=== PATIENT | female | born 1975 | race African-American/Black ===

== ENCOUNTER 2024-03-17 19:52 | Inpatient (IN) ==
[~2024-03-17 19:52] MED LIST: LORazepam 2 mg VIAL 1 ml IV PUSH ONE
[2024-03-17] MEDS ORDERED: Lorazepam PYXIS KEY PRN (20:22)
[2024-03-17] MEDS: LORazepam 2 mg VIAL 1 ml IV PUSH ONE (20:53)
[2024-03-17 21:26] LABS: Hematocrit 24.1 % (35-45); Mean Corpuscular Hgb Conc 23.6 g/dL (31-36); Mean Corpuscular Volume 63.8 fL (80-97); Mean Platelet Volume 7.3 fL (7.5-11.2); Platelet Count 689 10^3/uL (150-450); Red Blood Count 3.78 10^6/uL (3.63-4.92); Red Cell Distribution Width 26.8 % (12-17)
[2024-03-17 21:42] LABS: Albumin 2.5 g/dL (3.2-5.2); Albumin/Globulin Ratio 0.5 (1-3); Calcium 9.7 mg/dL (8.6-10.3); Creatinine, Serum 1.49 mg/dL (0.51-0.95); Globulin 4.9 g/dL (2-4); Magnesium 2.3 mg/dL (1.9-2.7); Potassium 4.8 mmol/L (3.5-5.0); Total Bilirubin 1.7 mg/dL (0.2-1.0); Total Protein 7.4 g/dL (6.4-8.9); eGFR CKD-EPI 43.3 (>60)
[2024-03-17 21:49] LABS: ABS Basophils 0.1 10^3/uL (0.0-0.1); ABS Lymphocytes 0.6 10^3/uL (1.0-4.8); ABS Monocytes 1.1 10^3/uL (0.0-0.9); ABS Neutrophils 18.2 10^3/uL (1.5-7.6); ABS Nucleated RBC 0.19 10^3/ul; Anisocytosis 2+; Eosinophil % 0.1 %; Hypochromasia 1+; Large Platelets Present; Lymphocyte % 2.9 %; Microcytosis 3+
[2024-03-17] MEDS ORDERED: Pantoprazole 80 mg in NS BAG 80 MG/250 ML BAG IV ONE (21:56)
[2024-03-17 21:57] LABS: Hematocrit 23.1 % (35-45); Hemoglobin 5.7 g/dL (11.5-14.3)
[2024-03-17] MEDS: Piperacillin/Tazobac 3.375 BAG 3.375 GM/100 ML BAG IV ONE (21:58)
[2024-03-17 22:04] LABS: Activated Partial Thrombo Time 24.7 seconds (26.0-38.0); INR 1.96 (0.83-1.13)
[2024-03-17] MEDS: Lactated Ringers SEPSIS* BAG 1,780 ML IV ONE (22:08)
[2024-03-17] MEDS: NORMOSOL R PH IV ONE (22:09)
[2024-03-17 22:17] LABS: High Sensitivity Troponin 1 Hr 18 pg/mL (<15)
[2024-03-17] MEDS: Pantoprazole VIAL 40 MG VIAL IV ONE (22:17)
[2024-03-17 22:27] LABS: PO2 Arterial 147 mmHg (80-100)
[2024-03-17 22:29] LABS: PCO2 Arterial <20 mmHg (35-45)
[2024-03-17 22:31] LABS: C Reactive Protein 140.08 mg/L (<8.01)
[2024-03-17] MEDS: Iodixanol (CONTRAST) 320 MG/ML 100 ML SDV IV ONE (23:10)
[2024-03-17 23:40] LABS: Immature Retic Fraction 0.52
[2024-03-18] MEDS: Pantoprazole 80 mg in NS BAG 80 MG/250 ML BAG IV SCH (00:35)
[2024-03-18] MEDS ORDERED: Lidocaine 1% MPF 5 ML VIAL INJ ONE (00:38)
[2024-03-18] MEDS ORDERED: Lidocaine 1% MPF 5 ML VIAL ONE (00:38)
[2024-03-18 00:47] LABS: Phosphorus 7.1 mg/dL (2.5-5.0)
[2024-03-18 00:49] LABS: RBC Retic Count 3.72 10^6/ul (3.63-4.92)
[2024-03-18 00:50] LABS: Corrected Retic Count 1.2 % (0.5-2.2); Hematocrit for Retic CNT 24.1 % (35-45)
[2024-03-18] MEDS: Vancomycin 1,500 MG in NS 0.9% 250 ml 250 ML IVPB ONE (01:38)
[2024-03-18] MEDS: Lactated Ringers 1000 ml BAG 1,000 ML IV ONE (02:25)
[2024-03-18 02:28] LABS: Hemoglobin 5.7 g/dL (11.5-14.3)
[2024-03-18 03:19] LABS: Urine Appearance Turbid; Urine Bilirubin Negative (Negative); Urine Blood Negative (Negative); Urine Color Yellow; Urine Glucose Negative (Negative); Urine Ketones Negative (Negative); Urine Nitrite Negative (Negative); Urine Protein 2+ (>=100 mg/dL) (Negative); Urine Specific Gravity 1.019 (1.002-1.030); Urine Urobilinogen 1+ (Negative); Urine pH 5.5 (5.0-8.0)
[2024-03-18 03:35] LABS: Iron < 20 ug/dL (50-212)
[2024-03-18 03:54] LABS: Ferritin 73.8 ng/mL (11-307)
[2024-03-18] MEDS: Morphine 2 MG/ML SYRINGE IV PRN ×2 (04:54→08:30)
[2024-03-18 05:01] LABS: Urine Amorphous Crystals Present /HPF (Absent); Urine Bacteria Absent /HPF (Absent); Urine Red Blood Cell Trace(0-2/hpf) /HPF (0-Trace); Urine Squamous Epithelial Cell Present /HPF (Absent); Urine White Blood Cell Trace(0-5/hpf) /HPF (0-Trace)
[2024-03-18 08:38] LABS: Hematocrit 22.3 % (35-45); Hemoglobin 6.6 g/dL (11.5-14.3)
[2024-03-18 08:40] LABS: INR 1.84 (0.83-1.13)
[2024-03-18 09:04] LABS: Hemoglobin 6.6 g/dL (11.5-14.3); Mean Corpuscular Hemoglobin 18.8 pg (27-33); Mean Corpuscular Hgb Conc 28.8 g/dL (31-36); Mean Corpuscular Volume 65.3 fL (80-97); Mean Platelet Volume 8.3 fL (7.5-11.2); Platelet Count 357 10^3/uL (150-450); Red Blood Count 3.53 10^6/uL (3.63-4.92)
[2024-03-18] MEDS: Pantoprazole VIAL 40 MG VIAL IV SCH (09:37)
[2024-03-18 09:39] LABS: ABS Lymphocytes 1.7 10^3/uL (1.0-4.8); ABS Monocytes 0.7 10^3/uL (0.0-0.9); ABS Neutrophils 9.5 10^3/uL (1.5-7.6); ABS Nucleated RBC 0.08 10^3/ul; Lymphocyte % 14.5 %; Nucleated Red Blood Cells % 0.7 %/100WBC (0.0-0.8)
[2024-03-18] MEDS: Piperacillin/Tazobac 3.375 BAG 3.375 GM/100 ML BAG IV ONE (09:59)
[2024-03-18] MEDS ORDERED: Zosyn per Pharmacy NOTE FOLLOW UP SCH (10:00)
[2024-03-18 10:01] LABS: Carcinoembryonic Antigen > 1000.0 ng/mL (0.1-5.0)
[2024-03-18 11:05] LABS: ALT 319 U/L (7-52); Albumin 2.2 g/dL (3.2-5.2); Albumin/Globulin Ratio 0.6 (1-3); Alkaline Phosphatase 351 U/L (35-149); Anion Gap 10 mmol/L (2-16); Blood Urea Nitrogen 21 mg/dL (6-24); CO2 Carbon Dioxide 22 mmol/L (22-32); Calcium 8.6 mg/dL (8.6-10.3); Chloride 101 mmol/L (101-111); Creatinine, Serum 1.21 mg/dL (0.51-0.95); Globulin 3.8 g/dL (2-4); Glucose 86 mg/dL (70-100); Phosphorus 5.3 mg/dL (2.5-5.0); Potassium 4.7 mmol/L (3.5-5.0); Sodium 133 mmol/L (135-145); Total Bilirubin 2.6 mg/dL (0.2-1.0); eGFR CKD-EPI 55.6 (>60)
[2024-03-18 11:34] LABS: AST 2481 U/L (13-39)
[2024-03-18] MEDS: ZOSYN 3.375 GM Q8H per EXTENDED INFUSION IV SCH (14:06)
[2024-03-18 15:11] LABS: Hematocrit 27.1 % (35-45); Hemoglobin 8.5 g/dL (11.5-14.3)
[2024-03-18] MEDS: Heparin DRIP 25,000 UNITS BAG 25,000 UNITS/250 ML BAG IV SCH (15:55)
[2024-03-18] MEDS: Heparin 5000 UNITS/ML 1 mL VIAL IV SCH (15:59)
[2024-03-18 22:52] LABS: Hematocrit 27.7 % (35-45); Hemoglobin 8.6 g/dL (11.5-14.3)
[2024-03-19] MEDS: NS 0.9% 1000 ml BAG 1,000 ML IV SCH (00:21)
[2024-03-19] MEDS: NS 0.9% 1000 ml BAG 1,000 ML IV ONE (06:01)
[2024-03-19 07:02] LABS: Calcium 7.8 mg/dL (8.6-10.3); Creatinine, Serum 1.17 mg/dL (0.51-0.95); eGFR CKD-EPI 57.9 (>60)
[2024-03-19 07:26] LABS: Albumin 2.2 g/dL (3.2-5.2); Albumin/Globulin Ratio 0.6 (1-3); Globulin 3.7 g/dL (2-4); Phosphorus 4.6 mg/dL (2.5-5.0); Total Bilirubin 3.5 mg/dL (0.2-1.0); Total Protein 5.9 g/dL (6.4-8.9)
[2024-03-19 08:03] LABS: Hematocrit 27.1 % (35-45); Hemoglobin 8.4 g/dL (11.5-14.3); Mean Corpuscular Hemoglobin 21.1 pg (27-33); Mean Corpuscular Volume 68.2 fL (80-97); Mean Platelet Volume 8.5 fL (7.5-11.2); Platelet Count 325 10^3/uL (150-450); Red Blood Count 3.98 10^6/uL (3.63-4.92); Red Cell Distribution Width 32.7 % (12-17); White Blood Count 12.7 10^3/uL (3.8-11.8)
[2024-03-19 08:05] LABS: ABS Lymphocytes 1.1 10^3/ul (1.0-4.8); ABS Monocytes 0.8 10^3/ul (0.0-0.9); ABS Neutrophils 10.8 10^3/ul (1.5-7.6); Anisocytosis 2+; Hypochromasia 2+; Microcytosis 2+
[2024-03-19] MEDS: Lactated Ringers 1000 ml BAG 1,000 ML IV ONE ×2 (08:24→11:00)
[2024-03-19 12:02] LABS: INR 1.59 (0.83-1.13)
[2024-03-19 14:20] LABS: Hepatitis B Surface Antigen Nonreactive (Nonreactive)
[2024-03-19 14:26] LABS: Hepatitis A Ab IgM Negative (Negative)
[2024-03-19 14:36] LABS: Hepatitis C Antibody Negative (Negative)
[2024-03-19 17:50] LABS: Hepatitis B Core IgM Nonreactive (Nonreactive)
[2024-03-20 07:02] LABS: ALT 185 U/L (7-52); AST 304 U/L (13-39); Albumin/Globulin Ratio 0.5 (1-3); Alkaline Phosphatase 371 U/L (35-149); Anion Gap 8 mmol/L (2-16); Blood Urea Nitrogen 27 mg/dL (6-24); CO2 Carbon Dioxide 22 mmol/L (22-32); Calcium 7.9 mg/dL (8.6-10.3); Chloride 103 mmol/L (101-111); Creatinine, Serum 1.16 mg/dL (0.51-0.95); Globulin 3.8 g/dL (2-4); Glucose 66 mg/dL (70-100); Magnesium 1.9 mg/dL (1.9-2.7); Phosphorus 4.1 mg/dL (2.5-5.0); Potassium 3.7 mmol/L (3.5-5.0); Sodium 133 mmol/L (135-145); Total Protein 5.8 g/dL (6.4-8.9); eGFR CKD-EPI 58.5 (>60)
[2024-03-20 07:50] LABS: Hematocrit 27.1 % (35-45); Hemoglobin 8.3 g/dL (11.5-14.3); Mean Corpuscular Hemoglobin 20.9 pg (27-33); Mean Corpuscular Hgb Conc 30.5 g/dL (31-36); Mean Corpuscular Volume 68.4 fL (80-97); Mean Platelet Volume 8.5 fL (7.5-11.2); Platelet Count 281 10^3/uL (150-450); Red Blood Count 3.96 10^6/uL (3.63-4.92); Red Cell Distribution Width 33.8 % (12-17); White Blood Count 12.8 10^3/uL (3.8-11.8)
[2024-03-20 07:57] LABS: Anisocytosis 2+; Hypochromasia 2+; Microcytosis 1+; Target Cells 1+; Tear Drop Cells 1+
[2024-03-20 08:53] LABS: ABS Lymphocytes 0.5 10^3/ul (1.0-4.8); ABS Monocytes 1.2 10^3/ul (0.0-0.9); ABS Neutrophils 11.1 10^3/ul (1.5-7.6)
[2024-03-20] MEDS: fentaNYL 100 mcg/2 ml 50 MCG/ML VIAL ONE (08:56)
[2024-03-20] MEDS ORDERED: Heparin 5000 UNITS/ML 1 mL VIAL IV SCH (09:00)
[2024-03-20] MEDS: NS 0.9% 1000 ml BAG 1,000 ML IV SCH (09:30)
[2024-03-20] MEDS: Heparin DRIP 25,000 UNITS BAG 25,000 UNITS/250 ML BAG IV SCH (09:47)
[2024-03-20 10:39] LABS: Creatine Kinase 1713 U/L (10-223)
[2024-03-20 12:29] LABS: % Iron Saturation 10 % (15-55); .Transferrin 146 mg/dL (203-362); Iron < 20 ug/dL (50-212); Total Iron Binding Capacity 204 mcg/dL (250-450); Unsaturated Iron Binding 184 ug/dL
[2024-03-20 14:30] LABS: Herpes Simplex Virus I IgG AB Positive (Negative); Herpes Simplex Virus II IgG AB Positive (Negative)
[2024-03-20 15:40] LABS: Immunoglobulin G 2100 mg/dL (767 - 1590)
[2024-03-20 17:38] LABS: Haptoglobin <14 mg/dL (30 - 200)
[2024-03-20] MEDS ORDERED: Albumin Human 5% 25 GM/500 ML BTL IV ONE (23:12)
[2024-03-21] MEDS ORDERED: Albumin Human 5% 25 GM/500 ML BTL IV ONE (01:00)
[2024-03-21] MEDS: Albumin Human 5% 12.5 GM/250 ML BTL IV SCH (01:36)
[2024-03-21 06:37] LABS: Hematocrit 27.3 % (35-45); Hemoglobin 8.1 g/dL (11.5-14.3); Mean Corpuscular Hemoglobin 20.9 pg (27-33); Mean Corpuscular Hgb Conc 29.8 g/dL (31-36); Mean Corpuscular Volume 70.2 fL (80-97); Mean Platelet Volume 8.4 fL (7.5-11.2); Platelet Count 246 10^3/uL (150-450); Red Blood Count 3.89 10^6/uL (3.63-4.92); Red Cell Distribution Width 34.4 % (12-17); White Blood Count 16.7 10^3/uL (3.8-11.8)
[2024-03-21 07:11] LABS: Albumin 2.4 g/dL (3.2-5.2); Albumin/Globulin Ratio 0.6 (1-3); Calcium 8.6 mg/dL (8.6-10.3); Creatinine, Serum 1.94 mg/dL (0.51-0.95); Globulin 3.9 g/dL (2-4); Magnesium 1.9 mg/dL (1.9-2.7); Phosphorus 5.5 mg/dL (2.5-5.0); Potassium 4.1 mmol/L (3.5-5.0); Total Bilirubin 3.3 mg/dL (0.2-1.0); Total Protein 6.3 g/dL (6.4-8.9); eGFR CKD-EPI 31.6 (>60)
[2024-03-21 07:47] LABS: ABS Lymphocytes 1.3 10^3/ul (1.0-4.8); ABS Monocytes 0.7 10^3/ul (0.0-0.9); ABS Neutrophils 14.7 10^3/ul (1.5-7.6)
[2024-03-21 07:49] LABS: Anisocytosis 2+; Hypochromasia 2+; Macrocytosis 1+; Microcytosis 1+; Target Cells 1+
[2024-03-21] MEDS: NS 0.9% 1000 ml BAG 1,000 ML IV SCH (08:48)
[2024-03-21 11:05] LABS: Cytomegalovirus IgG Antibody Positive (Negative); EBV, IgG Ab to Early Antigen Negative (Negative)
[2024-03-22 06:39] LABS: Hematocrit 28.6 % (35-45); Hemoglobin 8.3 g/dL (11.5-14.3); Mean Corpuscular Hemoglobin 20.8 pg (27-33); Mean Corpuscular Hgb Conc 29.1 g/dL (31-36); Mean Corpuscular Volume 71.3 fL (80-97); Mean Platelet Volume 8.6 fL (7.5-11.2); Platelet Count 239 10^3/uL (150-450); Red Cell Distribution Width 35.2 % (12-17)
[2024-03-22 06:41] LABS: Albumin 2.2 g/dL (3.2-5.2); Albumin/Globulin Ratio 0.6 (1-3); Calcium 8.6 mg/dL (8.6-10.3); Creatinine, Serum 2.55 mg/dL (0.51-0.95); Indirect Bilirubin 1.4 mg/dL (0.3-1.0); Magnesium 1.9 mg/dL (1.9-2.7); Potassium 4.2 mmol/L (3.5-5.0); Total Bilirubin 3.4 mg/dL (0.2-1.0); Total Protein 6.2 g/dL (6.4-8.9); eGFR CKD-EPI 22.7 (>60)
[2024-03-22 07:10] LABS: HIV 4th Generation Nonreactive (Nonreactive)
[2024-03-22 08:26] LABS: ABS Lymphocytes 2.5 10^3/ul (1.0-4.8); ABS Monocytes 1.6 10^3/ul (0.0-0.9); ABS Neutrophils 13.9 10^3/ul (1.5-7.6)
[2024-03-22 08:27] LABS: Anisocytosis 3+; Hypochromasia 1+; Macrocytosis 1+; Microcytosis 1+; Target Cells 1+
[2024-03-22] MEDS: Ferric Gluconate IV 250 MG in NS 0.9% 250 ml 200 ML IVPB SCH (10:18)
[2024-03-22 15:50] LABS: Urine Appearance Extra Turbid; Urine Bilirubin 1+ (Negative); Urine Blood Trace (Negative); Urine Color Dark-Yellow; Urine Glucose Trace (Negative); Urine Ketones Negative (Negative); Urine Nitrite Negative (Negative); Urine Protein 1+ (>=30 mg/dL) (Negative); Urine Specific Gravity 1.041 (1.002-1.030); Urine Urobilinogen Negative (Negative)
[2024-03-22 16:15] LABS: Budding Yeast Present /HPF (Absent); Urine Bacteria Absent /HPF (Absent); Urine Red Blood Cell Trace(0-2/hpf) /HPF (0-Trace); Urine Squamous Epithelial Cell Present /HPF (Absent); Urine White Blood Cell Trace(0-5/hpf) /HPF (0-Trace)
[2024-03-22] MEDS: NS 0.9% 1000 ml BAG 1,000 ML IV SCH (16:48)
[2024-03-22] MEDS: Petroleum Jelly 1.75 Oz (small jar) TOPICAL PRN (16:49)
[2024-03-23 06:56] LABS: Hematocrit 27.7 % (35-45); Hemoglobin 8.1 g/dL (11.5-14.3); Mean Corpuscular Hemoglobin 21.4 pg (27-33); Mean Corpuscular Hgb Conc 29.4 g/dL (31-36); Mean Corpuscular Volume 72.8 fL (80-97); Mean Platelet Volume 8.5 fL (7.5-11.2); Platelet Count 224 10^3/uL (150-450); Red Cell Distribution Width 36.4 % (12-17)
[2024-03-23 07:32] LABS: ABS Lymphocytes 1.7 10^3/ul (1.0-4.8); ABS Monocytes 1.9 10^3/ul (0.0-0.9); ABS Neutrophils 13.4 10^3/ul (1.5-7.6); Anisocytosis 2+; Hypochromasia 1+; Microcytosis 1+
[2024-03-23 08:03] LABS: Albumin 2.1 g/dL (3.2-5.2); Albumin/Globulin Ratio 0.5 (1-3); Calcium 8.4 mg/dL (8.6-10.3); Creatinine, Serum 2.57 mg/dL (0.51-0.95); Globulin 3.9 g/dL (2-4); Potassium 4.1 mmol/L (3.5-5.0); Total Bilirubin 4.1 mg/dL (0.2-1.0); eGFR CKD-EPI 22.5 (>60)
[2024-03-23] MEDS: D5LR 1000 ml BAG 1,000 ML IV SCH (12:04)
[2024-03-24 07:29] LABS: CKMB ng/mL 0.5 ng/mL (0.6-6.3)
[2024-03-24 08:21] LABS: Hematocrit 28.1 % (35-45); Hemoglobin 8.4 g/dL (11.5-14.3); Mean Corpuscular Hemoglobin 21.7 pg (27-33); Mean Corpuscular Hgb Conc 29.8 g/dL (31-36); Mean Corpuscular Volume 72.7 fL (80-97); Mean Platelet Volume 8.7 fL (7.5-11.2); Platelet Count 198 10^3/uL (150-450); Red Blood Count 3.86 10^6/uL (3.63-4.92); Red Cell Distribution Width 36.5 % (12-17); White Blood Count 13.2 10^3/uL (3.8-11.8)
[2024-03-24 08:42] LABS: Anisocytosis 3+; Hypochromasia 1+; Microcytosis 2+
[2024-03-24 08:43] LABS: ABS Lymphocytes 1.5 10^3/ul (1.0-4.8); ABS Monocytes 0.5 10^3/ul (0.0-0.9); ABS Neutrophils 11.2 10^3/ul (1.5-7.6)
[2024-03-24 10:23] LABS: Albumin 1.9 g/dL (3.2-5.2); Albumin/Globulin Ratio 0.5 (1-3); Calcium 8.2 mg/dL (8.6-10.3); Creatinine, Serum 2.33 mg/dL (0.51-0.95); Globulin 3.7 g/dL (2-4); Total Bilirubin 4.6 mg/dL (0.2-1.0); Total Protein 5.6 g/dL (6.4-8.9); eGFR CKD-EPI 25.3 (>60)
[2024-03-25 07:20] LABS: Calcium 8.1 mg/dL (8.6-10.3); Creatinine, Serum 1.87 mg/dL (0.51-0.95); Magnesium 1.8 mg/dL (1.9-2.7); Potassium 4.2 mmol/L (3.5-5.0)
[2024-03-25 07:21] LABS: ABS Eosinophils 0.1 10^3/ul (0.0-0.5); ABS Lymphocytes 1.1 10^3/ul (1.0-4.8); ABS Monocytes 0.3 10^3/ul (0.0-0.9); ABS Neutrophils 11.1 10^3/ul (1.5-7.6)
[2024-03-25 07:23] LABS: Anisocytosis 3+; Hematocrit 27.8 % (35-45); Hemoglobin 8.2 g/dL (11.5-14.3); Hypochromasia 1+; Mean Corpuscular Hgb Conc 29.6 g/dL (31-36); Mean Corpuscular Volume 74.1 fL (80-97); Mean Platelet Volume 8.7 fL (7.5-11.2); Microcytosis 1+; Platelet Count 211 10^3/uL (150-450); Red Blood Count 3.75 10^6/uL (3.63-4.92); Red Cell Distribution Width 36.9 % (12-17); White Blood Count 12.6 10^3/uL (3.8-11.8)
[2024-03-26] MEDS: D5LR 1000 ml BAG 1,000 ML IV SCH ×2 (04:16→11:35)
[2024-03-26 08:18] LABS: Hematocrit 26.6 % (35-45); Mean Corpuscular Hemoglobin 22.4 pg (27-33); Mean Corpuscular Hgb Conc 29.9 g/dL (31-36); Mean Platelet Volume 8.5 fL (7.5-11.2); Platelet Count 214 10^3/uL (150-450); Red Blood Count 3.55 10^6/uL (3.63-4.92); Red Cell Distribution Width 36.7 % (12-17); White Blood Count 14.2 10^3/uL (3.8-11.8)
[2024-03-26 08:45] LABS: ABS Neutrophils 12.5 10^3/ul (1.5-7.6); Anisocytosis 3+; Hypochromasia 3+; Macrocytosis 1+; Microcytosis 1+; Polychromasia 1+
[2024-03-26 08:46] LABS: ABS Lymphocytes 0.9 10^3/ul (1.0-4.8); ABS Monocytes 0.9 10^3/ul (0.0-0.9)
[2024-03-26 09:01] LABS: Calcium 7.8 mg/dL (8.6-10.3); Creatinine, Serum 1.37 mg/dL (0.51-0.95); Magnesium 1.8 mg/dL (1.9-2.7); Potassium 4.2 mmol/L (3.5-5.0); eGFR CKD-EPI 47.9 (>60)
[2024-03-26] MEDS: Magnesium Sulfate 2 gm BAG 2 GM/50 ML BAG IVPB ONE (10:00)
[2024-03-26 15:51] LABS: Creatinine, Serum 1.4 mg/dL (0.51-0.95); Magnesium 2.2 mg/dL (1.9-2.7); Potassium 4.4 mmol/L (3.5-5.0); eGFR CKD-EPI 46.7 (>60)
[2024-03-26] MEDS: Dextrose 50% Syringe 50 ml 25 GM/50 ML SYRINGE IV PUSH ONE (16:12)
[2024-03-26] MEDS: Lactated Ringers SEPSIS* BAG 1,780 ML IV ONE (16:15)
[2024-03-26 17:00] LABS: PCO2 Arterial 20 mmHg (35-45); PO2 Arterial 111 mmHg (80-100)
[2024-03-27 09:13] LABS: Hematocrit 30.8 % (35-45); Mean Corpuscular Hemoglobin 22.6 pg (27-33); Mean Corpuscular Hgb Conc 29.2 g/dL (31-36); Mean Corpuscular Volume 77.2 fL (80-97); Mean Platelet Volume 8.2 fL (7.5-11.2); Platelet Count 228 10^3/uL (150-450); Red Blood Count 3.98 10^6/uL (3.63-4.92); Red Cell Distribution Width 37.8 % (12-17); White Blood Count 15.7 10^3/uL (3.8-11.8)
[2024-03-27 09:14] LABS: ABS Basophils 0.2 10^3/ul (0.0-0.1); ABS Lymphocytes 2.4 10^3/ul (1.0-4.8); ABS Monocytes 0.5 10^3/ul (0.0-0.9); ABS Neutrophils 12.7 10^3/ul (1.5-7.6)
[2024-03-27 09:15] LABS: Anisocytosis 3+; Burr Cells 2+; Microcytosis 1+; Polychromasia 1+
[2024-03-27 09:16] LABS: Calcium 8.2 mg/dL (8.6-10.3); Creatinine, Serum 1.36 mg/dL (0.51-0.95); Potassium 4.2 mmol/L (3.5-5.0); eGFR CKD-EPI 48.3 (>60)
[2024-03-27] MEDS: D5NS 0.9% 1000 ml BAG 1,000 ML IV SCH (09:36)
[2024-03-27] MEDS ORDERED: Multivitamins/Minerals TAB PO SCH (17:00)
[2024-03-27] MEDS: Multivitamins ADULT w/MIN LIQ 15 ML UDC PO SCH (20:31)
[2024-03-28 05:49] LABS: Hematocrit 31.4 % (35-45); Hemoglobin 9.1 g/dL (11.5-14.3); Mean Corpuscular Hemoglobin 22.7 pg (27-33); Mean Corpuscular Volume 78.3 fL (80-97); Red Blood Count 4.01 10^6/uL (3.63-4.92); Red Cell Distribution Width 38.4 % (12-17); White Blood Count 18.4 10^3/uL (3.8-11.8)
[2024-03-28 06:50] LABS: Calcium 7.9 mg/dL (8.6-10.3); Creatinine, Serum 1.41 mg/dL (0.51-0.95); Potassium 4.2 mmol/L (3.5-5.0); eGFR CKD-EPI 46.3 (>60)
[2024-03-28 07:15] LABS: ABS Lymphocytes 1.5 10^3/ul (1.0-4.8)
[2024-03-28 07:16] LABS: ABS Monocytes 0.9 10^3/ul (0.0-0.9)
[2024-03-28 07:19] LABS: Anisocytosis 3+; Hypochromasia 2+; Mean Platelet Volume 8.1 fL (7.5-11.2); Microcytosis 1+; Platelet Count 187 10^3/uL (150-450); Polychromasia 1+
[2024-03-28] MEDS: Ondansetron 4 mg VIAL 2 MG/ML 2 ml VIAL IV PRN (08:18)
[2024-03-28 09:46] LABS: Albumin 1.7 g/dL (3.2-5.2); Albumin/Globulin Ratio 0.4 (1-3); Direct Bilirubin 3.6 mg/dL (0.03-0.18); Globulin 4.1 g/dL (2-4); Indirect Bilirubin 1.9 mg/dL (0.3-1.0); Total Bilirubin 5.5 mg/dL (0.2-1.0); Total Protein 5.8 g/dL (6.4-8.9)
[2024-03-28] MEDS ORDERED: Lidocaine PATCH 5% PATCH TRANSDERM PRN (16:50)
[2024-03-28] MEDS: D5NS 0.9% 1000 ml BAG 1,000 ML IV SCH (18:09)
[2024-03-29] MEDS: Polyethylene Glycol 3350 17 GM PACKET PO PRN (08:02)
[2024-03-29] MEDS: Senna TAB 8.6 mg TAB PO PRN (08:02)
[2024-03-29 09:47] LABS: Hematocrit 34.8 % (35-45); Hemoglobin 9.8 g/dL (11.5-14.3); Mean Corpuscular Hemoglobin 23.1 pg (27-33); Mean Corpuscular Hgb Conc 28.1 g/dL (31-36); Mean Platelet Volume 8.1 fL (7.5-11.2); Platelet Count 245 10^3/uL (150-450); Red Blood Count 4.25 10^6/uL (3.63-4.92); Red Cell Distribution Width 39.9 % (12-17); White Blood Count 26.6 10^3/uL (3.8-11.8)
[2024-03-29 09:48] LABS: INR 5.69 (0.83-1.13)
[2024-03-29 10:42] LABS: ABS Basophils 0.1 10^3/uL (0.0-0.1); ABS Eosinophils 0.1 10^3/uL (0.0-0.5); ABS Lymphocytes 4.9 10^3/uL (1.0-4.8); ABS Monocytes 0.4 10^3/uL (0.0-0.9); ABS Neutrophils 21.5 10^3/uL (1.5-7.6); ABS Nucleated RBC 0.06 10^3/ul; Anisocytosis 3+; Burr Cells 1+; Eosinophil % 0.5 %; Hypochromasia 2+; Lymphocyte % 18.2 %; Macrocytosis 1+; Microcytosis 1+; Nucleated Red Blood Cells % 0.2 %/100WBC (0.0-0.8); Tear Drop Cells 1+
[2024-03-29 10:55] LABS: Albumin 1.8 g/dL (3.2-5.2); Albumin/Globulin Ratio 0.4 (1-3); Calcium 7.9 mg/dL (8.6-10.3); Creatinine, Serum 1.79 mg/dL (0.51-0.95); Globulin 4.5 g/dL (2-4); Potassium 4.7 mmol/L (3.5-5.0); Total Bilirubin 5.6 mg/dL (0.2-1.0); Total Protein 6.3 g/dL (6.4-8.9); eGFR CKD-EPI 34.8 (>60)
[2024-03-29] MEDS ORDERED: Dextrose 25% PED SYRINGE 10ml IV PRN (19:00)
[2024-03-29] MEDS ORDERED: Dextrose 50% Syringe 50 ml 25 GM/50 ML SYRINGE IV PUSH PRN (19:08)
[2024-03-30 09:15] LABS: Hematocrit 33.9 % (35-45); Hemoglobin 9.4 g/dL (11.5-14.3); Mean Corpuscular Hemoglobin 22.9 pg (27-33); Mean Corpuscular Hgb Conc 27.8 g/dL (31-36); Mean Corpuscular Volume 82.6 fL (80-97); Mean Platelet Volume 8.2 fL (7.5-11.2); Platelet Count 219 10^3/uL (150-450); Red Blood Count 4.11 10^6/uL (3.63-4.92)
[2024-03-30 09:25] LABS: ALT 49 U/L (7-52); AST 118 U/L (13-39); Albumin < 1.7 g/dL (3.2-5.2); Albumin/Globulin Ratio 0.4 (1-3); Alkaline Phosphatase 191 U/L (35-149); Anion Gap 19 mmol/L (2-16); Blood Urea Nitrogen 45 mg/dL (6-24); CO2 Carbon Dioxide 9 mmol/L (22-32); Calcium 7.3 mg/dL (8.6-10.3); Chloride 107 mmol/L (101-111); Glucose 57 mg/dL (70-100); Potassium 5.7 mmol/L (3.5-5.0); Sodium 135 mmol/L (135-145); Total Bilirubin 4.6 mg/dL (0.2-1.0); Total Protein 5.7 g/dL (6.4-8.9); eGFR CKD-EPI 24.5 (>60)
[2024-03-30 09:31] LABS: INR 8.01 (0.83-1.13)
[2024-03-30 10:09] LABS: ABS Basophils 0.1 10^3/uL (0.0-0.1); ABS Lymphocytes 3.4 10^3/uL (1.0-4.8); ABS Monocytes 0.9 10^3/uL (0.0-0.9); ABS Neutrophils 23.6 10^3/uL (1.5-7.6); ABS Nucleated RBC 0.07 10^3/ul; Lymphocyte % 12.2 %; Nucleated Red Blood Cells % 0.2 %/100WBC (0.0-0.8); Red Cell Distribution Width 40.4 % (12-17)
[2024-03-30] MEDS ORDERED: Morphine ORAL CONCENTRATE 5 MG/0.25 ML ORAL.SYRIN SL PRN (10:22)
[2024-03-30] MEDS: D5W 1/2 NS KCl 20 meq 1000 ml 1,000 ML IV SCH (10:24)
[2024-03-30] MEDS: Morphine ORAL CONCENTRATE 5 MG/0.25 ML ORAL.SYRIN SL PRN (10:41)
[2024-03-30] MEDS: SODIUM ZIRCONIUM CYCLOSILICATE 10 GM PACKET PO SCH (11:02)
[2024-03-30] MEDS: D5W 1/2 NS 1000 ml BAG 1,000 ML IV SCH (11:54)
[2024-03-30] MEDS ORDERED: SODIUM ZIRCONIUM CYCLOSILICATE 10 GM PACKET PO SCH (14:00)
[2024-03-30] MEDS ORDERED: Ondansetron 4 mg VIAL 2 MG/ML 2 ml VIAL IV PRN (18:01)
[2024-03-31 10:47] VITALS: BP 57/38
[2024-03-31] MEDS: NS 0.9% 1000 ml BAG 1,000 ML IV ONE (12:34)
[2024-03-31] MEDS: D5W 1/2 NS 1000 ml BAG 1,000 ML IV SCH (13:09)
[2024-03-31] MEDS: Morphine ORAL CONCENTRATE 5 MG/0.25 ML ORAL.SYRIN SL ONE (13:18)
[2024-03-31] MEDS: Atropine 1% (ORAL/SL) 15 ML BTL SL PRN (13:18)
[2024-03-31] MEDS: Scopolamine 1 mg/72hr PATCH TRANSDERM SCH (13:18)
[2024-03-31] MEDS: Morphine ORAL CONCENTRATE 5 MG/0.25 ML ORAL.SYRIN SL PRN (14:38)
== END 2024-03-31 19:22 | disposition expired | DRG 281 ==
LOC: ED 19:52 → EDHOLD 03-18 02:16 → SUATTDRO 03-18 02:16 → ICU 03-18 02:39 → SSU 03-18 03:00 → MEDTELE 03-26 02:57 → SSU 03-26 13:28
PROVIDERS: ADMIT Internal Medicine; ATTEND Internal Medicine